=== PATIENT | female | born 1930 | race Caucasian/White ===

== ENCOUNTER 2018-03-09 16:03 | Inpatient (IN) ==
[2018-03-13 11:29] VITALS: BP 161/87
== END 2018-03-13 14:56 | disposition swing bed (61) | DRG 247 ==
LOC: N.ED 16:03 → N.EDINP 16:03 → N.TELEN 20:15 → N.ICU 03-10 01:35 → N.TELES 03-11 11:25
PROVIDERS: ADMIT Internal Medicine; ATTEND Internal Medicine
PROC: CLCCHCL (ICD-10-PCS; 2018-03-10 13:45)

== ENCOUNTER 2018-03-14 17:25 | Inpatient (IN) ==
[2018-03-14] MEDS ORDERED: MORPHINE 4 MG/1 ML VIAL IV STA (18:48)
[2018-03-14] MEDS ORDERED: ASPIRIN 325 MG TABLET PO STA (18:48)
[2018-03-14] MEDS ORDERED: LORazepam 1 MG TABLET PO STA (18:48)
[2018-03-14] MEDS ORDERED: NITROGLYCERIN 2% OINT 1 INCH/GM PACK TOP STA (18:48)
[2018-03-14] MEDS ORDERED: ALUM/MAG/SIMETH/LIDO VISC 1:1 30 ML BOTTLE PO STA (18:48)
[2018-03-14] MEDS ORDERED: ONDANSETRON 4 MG/2 ML VIAL IV STA (18:48)
[2018-03-14 19:15] LABS: Basophils % 0.5 % (0.0-0.8); Eosinophils # 0.1 10*3/uL (0.0-0.87); Eosinophils % 1.5 % (0.00-10.9); Hematocrit 32.3 VOL% (35.7-47.0); Hemoglobin 10.9 GM/DL (12.0-16.0); Immature Granulocytes % 0.7 %; Immature Granulocytes Absolute 0.05 #; Lymphocytes # 1.6 10*3/uL (1.4-4.0); Lymphocytes % 20.5 % (21.3-54.2); Mean Corpuscular HGB Conc 33.7 GM/DL (32-36); Mean Corpuscular Hemoglobin 32 PG (27-34); Mean Corpuscular Volume 95.8 FL (87-102); Mean Platelet Volume 11.7 FL (9.6-12.0); Monocytes # 0.6 10*3/uL (0.11-0.8); Monocytes % 7.7 % (1.7-12.7); Neutrophils # 5.2 10*3/uL (1.4-7.4); Neutrophils % 69.1 % (38.7-73.9); Platelet Count 212 T/CUMM (130-400); Red Blood Count 3.37 MC/CUMM (3.8-5.5); Red Cell Distribution Width 13.2 % (9.3-17.3); White Blood Count 7.6 T/CUMM (4-12)
[2018-03-14 19:16] LABS: Albumin 2.8 G/DL (3.4-5.0); Bilirubin,Total 0.6 MG/DL (0.2-1.0); Calcium 8.7 MG/DL (8.5-10.1); Osmolality,Calculated 286.5 MOS/KG (273-304); Potassium 4.7 MMOL/L (3.5-5.1); Total Protein 6.1 G/DL (6.4-8.3)
[2018-03-14 19:21] LABS: PT Patient Result 10.6 SECS
[2018-03-14] MEDS ORDERED: FUROSEMIDE 40 MG/4 ML VIAL IV STA (19:22)
[2018-03-14 20:33] LABS: Band Neutrophils 1 % (0-10); Eosinophils 3 % (0-10); Lymphocytes 16 % (20-55); Segmented Neutrophils 72 % (50-85); Total Cells Counted 100
[2018-03-14 20:34] LABS: Platelet Estimate Normal
[2018-03-14] MEDS ORDERED: MORPHINE 4 MG/1 ML VIAL IV PRN (23:12)
[2018-03-14] MEDS ORDERED: ONDANSETRON 4 MG/2 ML VIAL IV PRN (23:12)
[2018-03-14] MEDS ORDERED: NITROGLYCERIN SL 0.4 MG TABLET SL STA (23:12)
[2018-03-15] MEDS: ROSUVASTATIN 10 MG TABLET PO SCH ×2 (01:10→20:40)
[2018-03-15] MEDS: TICAGRELOR 90 MG TABLET PO SCH ×2 (01:10→09:12)
[2018-03-15 01:28] LABS: Troponin I Only 0.392 NG/ML (0.00-0.045)
[2018-03-15 01:31] LABS: Thyroid Stimulating Hormone 12.1 uIU/ml (0.358-3.74)
[2018-03-15 02:07] LABS: Basophils % 0.4 % (0.0-0.8); Eosinophils # 0.2 10*3/uL (0.0-0.87); Eosinophils % 2.6 % (0.00-10.9); Hematocrit 25.6 VOL% (35.7-47.0); Hemoglobin 8.3 GM/DL (12.0-16.0); Immature Granulocytes % 0.3 %; Immature Granulocytes Absolute 0.02 #; Lymphocytes # 2.1 10*3/uL (1.4-4.0); Lymphocytes % 30.4 % (21.3-54.2); Mean Corpuscular HGB Conc 32.4 GM/DL (32-36); Mean Corpuscular Hemoglobin 32 PG (27-34); Mean Corpuscular Volume 98.1 FL (87-102); Mean Platelet Volume 11.5 FL (9.6-12.0); Monocytes # 0.6 10*3/uL (0.11-0.8); Monocytes % 8.7 % (1.7-12.7); Neutrophils # 4.1 10*3/uL (1.4-7.4); Neutrophils % 57.6 % (38.7-73.9); Platelet Count 209 T/CUMM (130-400); Red Blood Count 2.61 MC/CUMM (3.8-5.5); Red Cell Distribution Width 13.3 % (9.3-17.3); White Blood Count 7.1 T/CUMM (4-12)
[2018-03-15 02:45] LABS: Albumin 2.6 G/DL (3.4-5.0); Bilirubin,Total 0.7 MG/DL (0.2-1.0); Calcium 8.3 MG/DL (8.5-10.1); Osmolality,Calculated 291.1 MOS/KG (273-304); Potassium 4.4 MMOL/L (3.5-5.1); Risk Ratio 3.7; Total Protein 5.5 G/DL (6.4-8.3); VLDL CHOLESTEROL 39.6 MG/DL
[2018-03-15 02:46] LABS: Macrocytosis 2+; Platelet Estimate Normal
[2018-03-15 02:47] LABS: Troponin I Only 0.381 NG/ML (0.00-0.045)
[2018-03-15] MEDS: LEVOTHYROXINE 25 MCG TABLET PO SCH ×2 (06:45→09:12)
[2018-03-15] MEDS ORDERED: PANTOPRAZOLE 40 MG TABLET PO SCH (09:00)
[2018-03-15] MEDS: OXYBUTYNIN 5 MG TABLET PO SCH (09:12)
[2018-03-15] MEDS: CARVEDILOL 6.25 MG TABLET PO SCH ×2 (09:12→18:02)
[2018-03-15] MEDS: PANTOPRAZOLE 40 MG TABLET PO SCH (09:12)
[2018-03-15] MEDS: ASPIRIN CHEW 81 MG TABLET PO SCH (09:12)
[2018-03-15] MEDS ORDERED: CLOPIDOGREL 75 MG TABLET PO ONE (10:28)
[2018-03-15] MEDS: FUROSEMIDE 40 MG/4 ML VIAL IV SCH (15:48)
[2018-03-15 17:29] LABS: Apearance,Urine CLEAR (Clear); Bilirubin,Urine Negative (Negative); Blood, Urine Negative (Negative); Glucose,Urine (UA) Negative (Negative); Ketones,Urine Negative (Negative); Mucus,Urine Occasional /LPF (Occasional); Nitrite,Urine Negative (Negative); Protein,Urine Negative; RBC,Urine 1 /HPF (0-4); Squamous Epithelial Cell,Urine Occasional /HPF (0-10); Urine Color Yellow (Yellow); Urine Specific Gravity 1.011 (1.001-1.035); Urine Urobilinogen < 2.0 EU/DL (0.2-1.0); WBC,Urine <1 /HPF (0-6)
[2018-03-15] MEDS: CAPTOPRIL 6.25 MG TABLET PO SCH (18:26)
[2018-03-15] MEDS: GABAPENTIN 100 MG CAPSULE PO SCH ×2 (18:26→20:41)
[2018-03-15] MEDS: ACETAMINOPHEN 325 MG TABLET PO SCH ×2 (18:26→20:43)
[2018-03-15] MEDS ORDERED: ALPRAZolam 0.25 MG TABLET PO ONE (22:50)
[2018-03-16] MEDS: LEVOTHYROXINE 50 MCG TABLET PO SCH (06:10)
[2018-03-16 06:19] LABS: Basophils % 0.5 % (0.0-0.8); Eosinophils # 0.3 10*3/uL (0.0-0.87); Eosinophils % 4.3 % (0.00-10.9); Hematocrit 26.2 VOL% (35.7-47.0); Hemoglobin 8.9 GM/DL (12.0-16.0); Immature Granulocytes % 0.5 %; Immature Granulocytes Absolute 0.04 #; Lymphocytes # 2.5 10*3/uL (1.4-4.0); Lymphocytes % 33.6 % (21.3-54.2); Mean Corpuscular Hemoglobin 33 PG (27-34); Mean Corpuscular Volume 96.7 FL (87-102); Mean Platelet Volume 11.9 FL (9.6-12.0); Monocytes # 0.7 10*3/uL (0.11-0.8); Monocytes % 9.2 % (1.7-12.7); Neutrophils # 3.8 10*3/uL (1.4-7.4); Neutrophils % 51.9 % (38.7-73.9); Platelet Count 219 T/CUMM (130-400); Red Blood Count 2.71 MC/CUMM (3.8-5.5); Red Cell Distribution Width 13.4 % (9.3-17.3); White Blood Count 7.3 T/CUMM (4-12)
[2018-03-16 06:48] LABS: Eosinophils 2 % (0-10); Lymphocytes 32 % (20-55); Myelocytes 1 %; Segmented Neutrophils 59 % (50-85); Total Cells Counted 100
[2018-03-16 06:49] LABS: Macrocytosis Slight; Platelet Estimate Normal
[2018-03-16 06:52] LABS: Albumin 2.5 G/DL (3.4-5.0); Bilirubin,Total 0.8 MG/DL (0.2-1.0); Calcium 8.5 MG/DL (8.5-10.1); Osmolality,Calculated 289.3 MOS/KG (273-304); Potassium 4.4 MMOL/L (3.5-5.1); Total Protein 5.5 G/DL (6.4-8.3)
[2018-03-16] MEDS: PANTOPRAZOLE 40 MG TABLET PO SCH (09:31)
[2018-03-16] MEDS: CAPTOPRIL 6.25 MG TABLET PO SCH (09:31)
[2018-03-16] MEDS: OXYBUTYNIN 5 MG TABLET PO SCH (09:32)
[2018-03-16] MEDS: GABAPENTIN 100 MG CAPSULE PO SCH ×3 (09:32→20:03)
[2018-03-16] MEDS: CARVEDILOL 6.25 MG TABLET PO SCH ×2 (09:32→17:07)
[2018-03-16] MEDS: ASPIRIN CHEW 81 MG TABLET PO SCH (09:32)
[2018-03-16] MEDS: CLOPIDOGREL 75 MG TABLET PO SCH (09:32)
[2018-03-16] MEDS: ACETAMINOPHEN 325 MG TABLET PO SCH ×2 (09:32→20:03)
[2018-03-16] MEDS ORDERED: ALPRAZolam 0.25 MG TABLET PO PRN (10:02)
[2018-03-16] MEDS ORDERED: traZODone 50 MG TABLET PO PRN (10:03)
[2018-03-16] MEDS ORDERED: ZALEPLON 5 MG CAPSULE PO PRN (10:04)
[2018-03-16] MEDS: FUROSEMIDE 40 MG/4 ML VIAL IV SCH ×2 (10:09→10:10)
[2018-03-16] MEDS ORDERED: SODIUM CHLORIDE 0.65% NASAL SPRAY 45 ML BOTTLE BOTH NARES PRN (17:31)
[2018-03-16] MEDS: ROSUVASTATIN 10 MG TABLET PO SCH (20:02)
[2018-03-17] MEDS: LEVOTHYROXINE 50 MCG TABLET PO SCH (06:26)
[2018-03-17] MEDS: ASPIRIN CHEW 81 MG TABLET PO SCH (08:44)
[2018-03-17] MEDS: CLOPIDOGREL 75 MG TABLET PO SCH (08:44)
[2018-03-17] MEDS: OXYBUTYNIN 5 MG TABLET PO SCH (08:44)
[2018-03-17] MEDS: CARVEDILOL 6.25 MG TABLET PO SCH ×2 (08:44→17:07)
[2018-03-17] MEDS: ACETAMINOPHEN 325 MG TABLET PO SCH ×2 (08:44→21:38)
[2018-03-17] MEDS: PANTOPRAZOLE 40 MG TABLET PO SCH (08:45)
[2018-03-17] MEDS: GABAPENTIN 100 MG CAPSULE PO SCH ×3 (08:45→21:38)
[2018-03-17] MEDS: FUROSEMIDE 40 MG/4 ML VIAL IV SCH (08:51)
[2018-03-17] MEDS ORDERED: SODIUM CHLORIDE 0.9% 250 ML IV ONE (11:19)
[2018-03-17 11:47] LABS: Calcium 8.5 MG/DL (8.5-10.1); Osmolality,Calculated 292.1 MOS/KG (273-304)
[2018-03-17] MEDS: ROSUVASTATIN 10 MG TABLET PO SCH (21:39)
[2018-03-18 05:36] LABS: Basophils # 0.1 10*3/uL (0.0-0.2); Basophils % 0.6 % (0.0-0.8); Eosinophils # 0.3 10*3/uL (0.0-0.87); Eosinophils % 3.2 % (0.00-10.9); Hematocrit 28.1 VOL% (35.7-47.0); Hemoglobin 8.9 GM/DL (12.0-16.0); Immature Granulocytes % 0.8 %; Immature Granulocytes Absolute 0.07 #; Lymphocytes # 2.7 10*3/uL (1.4-4.0); Lymphocytes % 32.4 % (21.3-54.2); Mean Corpuscular HGB Conc 31.7 GM/DL (32-36); Mean Corpuscular Hemoglobin 32 PG (27-34); Mean Corpuscular Volume 100.7 FL (87-102); Mean Platelet Volume 11.6 FL (9.6-12.0); Monocytes # 0.8 10*3/uL (0.11-0.8); Monocytes % 8.9 % (1.7-12.7); Neutrophils # 4.6 10*3/uL (1.4-7.4); Neutrophils % 54.1 % (38.7-73.9); Platelet Count 254 T/CUMM (130-400); Red Blood Count 2.79 MC/CUMM (3.8-5.5); Red Cell Distribution Width 13.4 % (9.3-17.3); White Blood Count 8.4 T/CUMM (4-12)
[2018-03-18 06:12] LABS: Eosinophils 4 % (0-10); Lymphocytes 34 % (20-55); Platelet Estimate Adequate; Segmented Neutrophils 57 % (50-85); Total Cells Counted 100
[2018-03-18 06:13] LABS: Calcium 8.4 MG/DL (8.5-10.1); Hypochromasia 1+; Osmolality,Calculated 288.4 MOS/KG (273-304); Ovalocytes Slight; Potassium 4.2 MMOL/L (3.5-5.1)
[2018-03-18] MEDS: LEVOTHYROXINE 50 MCG TABLET PO SCH (06:55)
[2018-03-18] MEDS: FUROSEMIDE 20 MG/2 ML VIAL IV SCH (09:47)
[2018-03-18] MEDS: CLOPIDOGREL 75 MG TABLET PO SCH (09:48)
[2018-03-18] MEDS: PANTOPRAZOLE 40 MG TABLET PO SCH (09:48)
[2018-03-18] MEDS: OXYBUTYNIN 5 MG TABLET PO SCH (09:48)
[2018-03-18] MEDS: ASPIRIN CHEW 81 MG TABLET PO SCH (09:48)
[2018-03-18] MEDS: ACETAMINOPHEN 325 MG TABLET PO SCH ×2 (09:48→21:10)
[2018-03-18] MEDS: GABAPENTIN 100 MG CAPSULE PO SCH ×3 (09:48→21:11)
[2018-03-18] MEDS: CARVEDILOL 6.25 MG TABLET PO SCH ×2 (09:48→17:10)
[2018-03-18] MEDS: ROSUVASTATIN 10 MG TABLET PO SCH (21:11)
[2018-03-19] MEDS: LEVOTHYROXINE 50 MCG TABLET PO SCH (06:34)
[2018-03-19] MEDS: LISINOPRIL 2.5 MG TABLET PO SCH (09:40)
[2018-03-19] MEDS: ASPIRIN CHEW 81 MG TABLET PO SCH (09:41)
[2018-03-19] MEDS: ACETAMINOPHEN 325 MG TABLET PO SCH ×2 (09:41→20:48)
[2018-03-19] MEDS: PANTOPRAZOLE 40 MG TABLET PO SCH (09:41)
[2018-03-19] MEDS: OXYBUTYNIN 5 MG TABLET PO SCH (09:41)
[2018-03-19] MEDS: CLOPIDOGREL 75 MG TABLET PO SCH (09:41)
[2018-03-19] MEDS: FUROSEMIDE 20 MG/2 ML VIAL IV SCH (09:41)
[2018-03-19] MEDS: GABAPENTIN 100 MG CAPSULE PO SCH ×3 (09:41→20:48)
[2018-03-19] MEDS: CARVEDILOL 6.25 MG TABLET PO SCH (09:41)
[2018-03-19] MEDS: CARVEDILOL 3.125 MG TABLET PO SCH (20:47)
[2018-03-19] MEDS: ROSUVASTATIN 10 MG TABLET PO SCH (20:47)
[2018-03-20] MEDS: LEVOTHYROXINE 50 MCG TABLET PO SCH (06:31)
[2018-03-20] MEDS: CLOPIDOGREL 75 MG TABLET PO SCH (08:31)
[2018-03-20] MEDS: GABAPENTIN 100 MG CAPSULE PO SCH (08:31)
[2018-03-20] MEDS: OXYBUTYNIN 5 MG TABLET PO SCH (08:31)
[2018-03-20] MEDS: LISINOPRIL 2.5 MG TABLET PO SCH (08:31)
[2018-03-20] MEDS: CARVEDILOL 3.125 MG TABLET PO SCH (08:31)
[2018-03-20] MEDS: PANTOPRAZOLE 40 MG TABLET PO SCH (08:32)
[2018-03-20] MEDS: FUROSEMIDE 20 MG/2 ML VIAL IV SCH (08:32)
[2018-03-20] MEDS: ASPIRIN CHEW 81 MG TABLET PO SCH (08:32)
[2018-03-20] MEDS: ACETAMINOPHEN 325 MG TABLET PO SCH (08:32)
[2018-03-20 11:59] VITALS: BP 102/51
== END 2018-03-20 14:12 | disposition swing bed (61) | DRG 282 ==
LOC: EDUNIT# → EDBD → N.ED 17:25 → N.EDINP 20:44 → N.TELES 21:32
PROVIDERS: ADMIT Internal Medicine; ATTEND Internal Medicine